=== PATIENT | male | born 1960 | race Caucasian/White ===

== ENCOUNTER 2017-03-10 20:16 | Inpatient (IN) | payer OTHER ==
[~2017-03-10] VITALS: Ht 170.2 cm; Wt 68.0 kg
--- NOTE | ~2017-03-10 | HP ---
Unit #: [id number] #: [id number] Patient: MARK DAVIDSON [id number] [place] [address] [id number] MR#: [id number] NAME: MARK DAVIDSON. ROOM: P184 Age: 56 Sex: M Admission Date: 03/10/2017 : 1960 Attending Physician: Guille Fletcher M.D. Admitting Physician: Guille Fletcher M.D. Primary Care Physician: Primary Care Physician No HISTORY AND PHYSICAL HISTORY OF PRESENT ILLNESS Mark is a 56 year old admitted to [facility] because of his drug use. He shoots heroin. PAST MEDICAL HISTORY 1. Long history of opioid abuse to include IV heroin. 2. Hepatitis C. 3. History of withdrawal seizures. PAST SURGICAL HISTORY Nothing reported. ALLERGIES Penicillin, Haldol, lithium, codeine. SOCIAL HISTORY Smokes 1 pack per day. Denies alcohol. Admits to a long history of opioid abuse to include IV heroin. FAMILY HISTORY Medically noncontributory. REVIEW OF SYSTEMS CONSTITUTIONAL: No fever or chills. HEENT: Denies any sore throat, ear pain or runny nose. CARDIOVASCULAR: Denies chest pain, irregular heart rhythm or palpitations. CHEST: Denies shortness of breath or cough. No hemoptysis. GASTROINTESTINAL: Denies nausea, vomiting, diarrhea or chronic constipation. ENDOCRINE: Denies history of increased thirst or urination. No recent significant weight loss or gain. GENITOURINARY: Denies dysuria, frequency, or hematuria. SKIN: Denies any rashes. HEMATOLOGIC: Denies history of increased bleeding or bruising. MUSCULOSKELETAL: Denies any hot, swollen joints. No generalized muscle pain. NEUROLOGIC: Denies problems with vision or speech. No frequent, severe headaches. No numbness, tingling or weakness in any extremities. Denies loss of bladder or bowel control. CURRENT MEDICATIONS Detox protocol. Unit #: [id number] #: [id number] Patient: MARK DAVIDSON PHYSICAL EXAMINATION GENERAL: Alert, well-nourished, in no apparent distress. VITAL SIGNS: Blood pressure 130/70, heart rate 80, respirations 16, temperature 98.6. SKIN: Warm and dry without rash or lesion. HEENT: Normocephalic. TMs not viewed. Oral and nasal passages clear. Conjunctivae clear. PERRLA. EOMs intact. NECK: Supple without lymphadenopathy or thyromegaly. HEART: Regular rate and rhythm without murmur. LUNGS: Clear. ABDOMEN: Soft, nontender. : Not done. EXTREMITIES: No evidence of cyanosis, clubbing or edema. Moves all without focal deficit. NEUROLOGICAL: Grossly within normal limits. Cranial Nerves: II: Visual sandoval are intact. III, IV AND : Extraocular movements are intact. Pupils are equal, round and reactive to light. V: Facial sensation is grossly normal. VII: Facial movements and expression are normal. VIII: Auditory acuity grossly intact. IX, X: Uvula is midline. Phonation is normal. XI: Patient shrugs shoulders and turns head normally. XII: Tongue protrudes in the midline. Sensory and Motor Function: Sensory and motor sensation is grossly normal. Motor: moves all extremities well. Coordination: Gait is normal. Deep Tendon Reflexes: Intact. IMPRESSION Psychiatric admission. RECOMMENDATIONS PSYCHIATRIC: Per psychiatrist. MEDICAL: See no contraindication to participate in facility's activities. MEDICAL PROGNOSIS Good. MEDICAL CONDITION Stable. Dictated by... Alice Bond P.A.-C. for Sandeep Ponce/opal TD: 03/11/2017 20:18 JOB #: [id number] Unit #: [id number] #: [id number] Patient: MARK DAVIDSON HISTORY AND PHYSICAL Page 1 of 1 X Alice Bond X HISTORY AND PHYSICAL
--- NOTE | ~2017-03-10 | PA ---
Unit #: [id number] #: [id number] Patient: KEEGAN DAVIDSON [id number] [facility] [address] [place] [address] [id number] MR#: [id number] NAME: KEEGAN DAVIDSON. ROOM: P184 Age: 56 Sex: M Admission Date: 03/10/2017 : 1960 Date of Assessment: 03/11/2017 Attending Physician: Guille Fletcher M.D. Admitting Physician: Guille Fletcher M.D. Primary Care Physician: Primary Care Physician No PSYCHIATRIC ASSESSMENT IDENTIFYING INFORMATION The patient is a 56-year-old unmarried white male well-known to this physician. He is readmitted following a recent relapse of heroin use. INFORMANT(S) Patient. RELIABILITY Good. CHIEF COMPLAINT "I have fell off." HISTORY OF PRESENT ILLNESS The patient is a 56-year-old white male well-known to this physician from multiple previous admissions to this facility. He had maintained sobriety for several months having last been admitted to this facility in July 2015. The patient reports that he had maintained sobriety until recently when he "fell off." He was found using heroin by his mother in the home he shares with his grandmother for whom he is the primary caregiver. The patient also reports that he has been abusing alcohol and illicitly obtained alprazolam at the time of admission. The patient was reporting positive suicidal ideation with plan to overdose. For a more complete history of present illness, please refer to previous dictated notes. PAST PSYCHIATRIC HISTORY Reviewed, no changes. FAMILY HISTORY/SOCIAL HISTORY Reviewed, no changes. MEDICAL HISTORY Reviewed, no changes. MEDICATION HISTORY None. ALLERGIES None. MENTAL STATUS EXAM At this time, reveals the patient to be a well-developed, well-nourished white male appearing stated age. He is in no apparent physical distress at Unit #: [id number] #: [id number] Patient: KEEGAN DAVIDSON time of examination. He is awake, alert, oriented in all spheres. His mood is mildly dysphoric. His affect constricted. Speech is generally relevant and coherent. There are no gross deficits in memory or cognition noted. Intelligence is judged to be in the average range based on fund of knowledge. The patient is cooperative throughout the interview. He is currently endorsing positive suicidal ideation. He denies homicidal ideations. He denies any psychotic symptoms. His judgement and insight appear to be reasonably intact. ASSETS AND LIABILITIES Patient's assets, motivation for change. Liabilities, lack of resources. ADMITTING DIAGNOSES 1. Opioid use disorder. 2. Alcohol use disorder. 3. Sedative/hypnotic use disorder. 4. Dysthymic disorder. PSYCHIATRIC PLAN/TREATMENT GOALS The patient remains hospitalized for safety and stabilization. Routine detoxification protocol for opioids has been initiated and I will add p.r.n. Ativan to address any potential symptoms of benzodiazepine or alcohol withdrawal. ESTIMATED LENGTH OF STAY Five to seven days. Dictated by... Guille Fletcher M.D. JONATHON/opal TD: 03/11/2017 15:12 JOB #: [id number] PSYCHIATRIC ASSESSMENT Page 1 of 1 X Guille Fletcher MD X PSYCHIATRIC ASSESSMENT
--- NOTE | ~2017-03-10 | DS ---
Unit #: [id number] #: [id number] Patient: KEEGAN DAVIDSON [id number] [facility] [address] [place] [address] [id number] MR#: [id number] NAME: KEEGAN DAVIDSON. ROOM: 84 Age: 56 Sex: M Admission Date: 03/10/2017 : 1960 Discharge Date: 03/12/2017 Attending Physician: Guille Fletcher M.D. Primary Care Physician: Primary Care Physician No DISCHARGE SUMMARY REASON FOR ADMISSION The patient is a 56-year-old white male, admitted for opioid detox. HOSPITAL COURSE The patient was admitted to the [facility] unit and placed on routine detoxification protocol for opioids. He was also watch for any signs of alcohol or benzodiazepine withdrawal. The patient's stay in the hospital was brief and uneventful one. He participated to no significant degree, but exhibited little in the way of signs or symptoms of withdrawal. On 03/12/2017, he requested discharge and it was so ordered. FINAL DIAGNOSES Opioid use disorder; alcohol use disorder; sedative hypnotic use disorder; hepatitis C. DISPOSITION ON DISCHARGE The patient is discharged on the following medications: Phenergan 25 mg q.4 hours p.r.n. anxiety, #10, no refills. FOLLOWUP The patient will follow through the auspices of the chemical dependency intensive outpatient program as expressed interest and possible initiation of Vivitrol. PROGNOSIS His prognosis is considered fair. Dictated by... Guille Fletcher M.D. CB/carolinel TD: 03/12/2017 12:41 JOB #: [id number] Unit #: [id number] #: [id number] Patient: KEEGAN DAVIDSON DISCHARGE SUMMARY Page 1 of 1 X Guille Fletcher MD X DISCHARGE SUMMARY
[~2017-03-10 20:16] MED LIST: ALB/IPRATROPIUM/1 EA INH; ALPRAZOLAM PO; BUSPAR15 MG PO; FOLAST TABLET1 EACH PO; KLONOPIN PO; MULTI-DAY VITAM1 TAB PO; PREDNISONE PO; VITAMINE B-1100 MG PO; ZYPREXA PO
[2017-03-11 09:40] LABS: BASOPHIL# 0.1 X10e3 (0-0.3); BASOPHIL% 0.7 % (0-2.5); EOSINOPHIL# 0.2 X10e3 (0-0.7); HEMATOCRIT 34.9 % (38.0-50.0); HEMOGLOBIN 11.6 gm/dL (13.0-16.0); LYMPHOCYTE# 2.1 X10e3 (1.0-3.5); LYMPHOCYTE% 26.6 % (17.0-45.0); MEAN CELL VOLUME 81.5 FL (83-96); MEAN CORPUSCULAR HGB CONC 33.2 g/dL (30-36); MEAN PLATELET VOLUME 9.8 FL (6.5-11.5); MONOCYTE# 0.9 X10e3 (0-1.0); MONOCYTE% 11.8 % (3.0-12.0); NEUTROPHIL# 4.5 X10e3 (1.5-7.1); NEUTROPHIL% 57.9 % (40-75); PLATELET COUNT 212 X10e3 (140-420); RED BLOOD COUNT 4.29 X10e (3.90-5.60); RED CELL DISTRIBUTION WIDTH 14.8 % (11.0-15.5); WHITE BLOOD COUNT 7.8 X10e3 (4.0-10.5)
[2017-03-11 09:52] LABS: DIFF IND NO
[2017-03-11 09:53] LABS: ALBUMIN SERUM 3.5 g/dL (3.5-5.0); BILIRUBIN,TOTAL 0.6 mg/dL (0.2-2.0); BUN/CREATININE RATIO 15.45; CALCIUM SERUM 8.7 mg/dL (8.4-10.2); CREATININE SERUM 1.1 mg/dL (0.6-1.4); GLOM FILT RATE Estimated 75.2 mL/min (>60); PROTEIN TOTAL SERUM 6.1 g/dL (6.0-8.3)
== END 2017-03-12 12:40 | disposition home or self-care (01) | DRG 897 ==
LOC: P1E 21:33
PROVIDERS: Specialist
PROC: HZ2ZZZZ Detoxification Services for Substance Abuse Treatment (ICD-10-PCS; principal; 2017-03-11)
DX: F11.10 Opioid abuse, uncomplicated (principal); F10.10 Alcohol abuse, uncomplicated; F13.10 Sedative, hypnotic or anxiolytic abuse, uncomplicated; F34.1 Dysthymic disorder; B19.20 Unspecified viral hepatitis C without hepatic coma; F17.210 Nicotine dependence, cigarettes, uncomplicated
CPT/HCPCS: 80053; 85025; 86592